=== PATIENT | male | born 1955 | race Hispanic/Latino ===

== ENCOUNTER 2020-12-21 11:43 | Outpatient (CLI) | payer MEDICARE, BC ==
[2020-12-22 01:56] LABS: SARS-CoV-2 PCR by NAA Not Detected (NotDetected)
== END 2020-12-21 11:44 | disposition home or self-care (01) ==
LOC: CSHLAB 11:43
PROVIDERS: ATTEND Internal Medicine Gastroenterology
DX: Z01.812 Encounter for preprocedural laboratory examination (principal); Z20.822 Contact with and (suspected) exposure to COVID-19; I85.00 Esophageal varices without bleeding
CPT/HCPCS: U0003; U0005

== ENCOUNTER 2020-12-26 06:25 | Day surgery (SDC) | payer MEDICARE, BC ==
[2020-12-23 13:51] VITALS: BMI 34.3
[2020-12-26] MEDS ORDERED: Lidocaine 1% MPF 2 ML VIAL ONE (06:29)
[2020-12-26] MEDS ORDERED: PROPOFOL 20 ML ONE (07:04)
[2020-12-26] MEDS ORDERED: Glycopyrrolate 0.2 MG/ML 5 ML SYRINGE ONE (07:05)
[2020-12-26] MEDS ORDERED: Lidocaine 1% PF 5 ML VIAL ONE (07:05)
[2020-12-26] MEDS ORDERED: Fentanyl 100 MCG/2 ML VIAL ONE (08:19)
== END 2020-12-26 09:45 | disposition home or self-care (01) ==
LOC: CSHSDC 06:25
PROVIDERS: ATTEND Internal Medicine Gastroenterology
PROC: 0W3P8ZZ Control Bleeding in Gastrointestinal Tract, Via Natural or Artificial Opening Endoscopic (ICD-10-PCS; principal; 2020-12-26)
DX: I85.01 Esophageal varices with bleeding (principal); K70.31 Alcoholic cirrhosis of liver with ascites; M06.9 Rheumatoid arthritis, unspecified; B18.2 Chronic viral hepatitis C; K76.6 Portal hypertension; K31.89 Other diseases of stomach and duodenum
CPT/HCPCS: 88305; J2704; J3010

== ENCOUNTER 2023-11-13 12:18 | Day surgery (SDC) | payer MEDICARE ==
[2023-11-13] MEDS ORDERED: Lidocaine 1% PF 5 ML VIAL ONE (12:49)
[2023-11-13] MEDS ORDERED: Sodium Bicarbonate 2.5 MEQ/5 ML SDV ONE (12:49)
[2023-11-13] MEDS ORDERED: Albumin 25% 100 ML ONE (13:30)
[2023-11-13 14:39] VITALS: BP 119/71; TEMP 98
== END 2023-11-13 14:10 | disposition home or self-care (01) ==
LOC: CSHULT 12:18
PROVIDERS: ATTEND Internal Medicine Gastroenterology
PROC: 0W9G30Z Drainage of Peritoneal Cavity with Drainage Device, Percutaneous Approach (ICD-10-PCS; principal; 2023-11-13)
DX: K74.60 Unspecified cirrhosis of liver (principal); R18.8 Other ascites; K76.82 Hepatic encephalopathy; M19.90 Unspecified osteoarthritis, unspecified site; K44.9 Diaphragmatic hernia without obstruction or gangrene; B19.20 Unspecified viral hepatitis C without hepatic coma; F17.210 Nicotine dependence, cigarettes, uncomplicated; Z90.49 Acquired absence of other specified parts of digestive tract
CPT/HCPCS: 49083; P9047

== ENCOUNTER 2023-11-27 12:21 | Day surgery (SDC) | payer MEDICARE ==
[2023-11-27] MEDS ORDERED: Albumin 25% 100 ML ONE (13:02)
[2023-11-27] MEDS ORDERED: Sodium Bicarbonate 2.5 MEQ/5 ML SDV ONE (13:03)
[2023-11-27 13:23] VITALS: BP 140/77; TEMP 98.1
== END 2023-11-27 14:45 | disposition home or self-care (01) ==
LOC: CSHULT 12:21
PROVIDERS: ATTEND Internal Medicine Gastroenterology
PROC: 0W9G30Z Drainage of Peritoneal Cavity with Drainage Device, Percutaneous Approach (ICD-10-PCS; principal; 2023-11-27)
DX: K74.60 Unspecified cirrhosis of liver (principal); R18.8 Other ascites; K76.82 Hepatic encephalopathy; M19.90 Unspecified osteoarthritis, unspecified site; K44.9 Diaphragmatic hernia without obstruction or gangrene; B19.20 Unspecified viral hepatitis C without hepatic coma; F17.210 Nicotine dependence, cigarettes, uncomplicated; Z90.49 Acquired absence of other specified parts of digestive tract
CPT/HCPCS: 49083; P9047

== ENCOUNTER 2023-12-11 12:41 | Day surgery (SDC) | payer MEDICARE ==
[2023-12-11] MEDS ORDERED: Lidocaine 1% PF 5 ML VIAL ONE (12:44)
[2023-12-11] MEDS ORDERED: Sodium Bicarbonate 2.5 MEQ/5 ML SDV ONE (12:44)
[2023-12-11] MEDS ORDERED: Albumin 25% 100 ML ONE ×2 (12:59→14:03)
[2023-12-11 13:10] VITALS: BP 130/72; TEMP 98.7
[2023-12-11 13:21] LABS: #Basophils 0.05 10x3/uL (0.0-0.2); #Eosinophils 0.19 10x3/uL (0.0-0.5); #Monocytes 0.99 10x3/uL (0.0-1.1); #Neutrophils 7.31 10x3/uL (1.5-8.4); %Basophils 0.5 % (0.0-2.0); %Lymphocytes 7.9 % (18.0-47.0); %Monocytes 10.6 % (0.0-10.0); %Neutrophils 78.4 % (40.0-75.0); Hematocrit 38.1 % (38.8-50.0); Hemoglobin 13.6 g/dL (13.5-17.5); Mean Corpuscular HGB CONC 35.7 g/dL (32.0-36.0); Mean Corpuscular Hemoglobin 34.4 pg (27.0-33.0); Mean Corpuscular Volume 96.5 fL (81.2-95.1); Platelet Count 140 10x3/uL (150-450); RBC Distribution Width 13.4 % (11.5-14.5); Red Blood Cell (RBC) Count 3.95 10x6/uL (4.32-5.72); White Blood Cell (WBC) Count 9.3 10x3/uL (3.5-10.5)
[2023-12-11 13:24] LABS: INR-International Normal Ratio 1.2; Prothrombin Time 12.5 sec (9.5-12.1)
[2023-12-11 13:57] LABS: Mean Platelet Volume 10.2 fL (7.4-10.4)
== END 2023-12-11 14:35 | disposition home or self-care (01) ==
LOC: CSHULT 12:41
PROVIDERS: ATTEND Internal Medicine Gastroenterology
PROC: 0W9G30Z Drainage of Peritoneal Cavity with Drainage Device, Percutaneous Approach (ICD-10-PCS; principal; 2023-12-11)
DX: K74.60 Unspecified cirrhosis of liver (principal); R18.8 Other ascites; K76.82 Hepatic encephalopathy; M19.90 Unspecified osteoarthritis, unspecified site; K44.9 Diaphragmatic hernia without obstruction or gangrene; K42.9 Umbilical hernia without obstruction or gangrene; B19.20 Unspecified viral hepatitis C without hepatic coma; F17.210 Nicotine dependence, cigarettes, uncomplicated; Z90.49 Acquired absence of other specified parts of digestive tract; Z79.899 Other long term (current) drug therapy
CPT/HCPCS: 49083; 85025; 85610; P9047

== ENCOUNTER → 2023-12-25 | Day surgery (SDC) | payer MEDICARE ==
[~2023-12-25] MED LIST: Albumin 25% 200 ML ONE; Sodium Bicarbonate 2.5 MEQ/5 ML SDV ONE
[2023-12-25 12:58] VITALS: BP 177/77; TEMP 99.5
[2023-12-25 14:31] LABS: Body Fluid Source Ascites Body Fluid
[2023-12-25 14:32] LABS: BF Color Yellow; Clarity Clear (Clear); Tube # EDTA
[2023-12-25 15:01] LABS: BF Segmented Neutrophils 34 %; Cell Count Non Hematic 21 %; Lymphocytes 45 %
== END ==
LOC: CSHULT 12:20
PROVIDERS: ATTEND Internal Medicine Gastroenterology
PROC: 0W9G3ZZ Drainage of Peritoneal Cavity, Percutaneous Approach (ICD-10-PCS; principal; 2023-12-25)
DX: R18.8 Other ascites (principal); K74.60 Unspecified cirrhosis of liver; K76.82 Hepatic encephalopathy; M19.90 Unspecified osteoarthritis, unspecified site; K44.9 Diaphragmatic hernia without obstruction or gangrene; B19.20 Unspecified viral hepatitis C without hepatic coma; F17.210 Nicotine dependence, cigarettes, uncomplicated; Z90.49 Acquired absence of other specified parts of digestive tract; Z87.442 Personal history of urinary calculi; Z79.899 Other long term (current) drug therapy
CPT/HCPCS: 49083; 87070; 87205; 89051; P9047; 87077

== ENCOUNTER → 2024-01-08 | Day surgery (SDC) | payer MEDICARE ==
[~2024-01-08] MED LIST changes: +FLU (Fluad Triv) TS24-25 (65UP)/MF59C/PF 45 MCG/0.5 ML Syringe IM ONE
[2024-01-08 12:59] VITALS: BP 124/74; TEMP 97.8
== END ==
LOC: CSHULT 12:22
PROVIDERS: ATTEND Internal Medicine Gastroenterology
PROC: 0W9G30Z Drainage of Peritoneal Cavity with Drainage Device, Percutaneous Approach (ICD-10-PCS; principal; 2024-01-08)
DX: K74.60 Unspecified cirrhosis of liver (principal); R18.8 Other ascites; K76.82 Hepatic encephalopathy; M19.90 Unspecified osteoarthritis, unspecified site; K44.9 Diaphragmatic hernia without obstruction or gangrene; B19.20 Unspecified viral hepatitis C without hepatic coma; F17.210 Nicotine dependence, cigarettes, uncomplicated; Z90.49 Acquired absence of other specified parts of digestive tract; Z79.899 Other long term (current) drug therapy
CPT/HCPCS: 49083; P9047

== ENCOUNTER 2024-01-22 12:38 | Day surgery (SDC) | payer MEDICARE ==
[2024-01-22] MEDS ORDERED: Albumin 25% 200 ML ONE (13:00)
[2024-01-22 14:00] LABS: #Basophils 0.03 10x3/uL (0.0-0.2); #Eosinophils 0.06 10x3/uL (0.0-0.5); #Monocytes 1.75 10x3/uL (0.0-1.1); #Neutrophils 10.25 10x3/uL (1.5-8.4); %Basophils 0.2 % (0.0-2.0); %Eosinophils 0.5 % (0.0-6.0); %Lymphocytes 4.1 % (18.0-47.0); %Monocytes 13.8 % (0.0-10.0); %Neutrophils 80.6 % (40.0-75.0); Hematocrit 33.5 % (38.8-50.0); Hemoglobin 12.3 g/dL (13.5-17.5); Mean Corpuscular HGB CONC 36.7 g/dL (32.0-36.0); Mean Corpuscular Volume 95.4 fL (81.2-95.1); Mean Platelet Volume 10.5 fL (7.4-10.4); Platelet Count 141 10x3/uL (150-450); RBC Distribution Width 13.2 % (11.5-14.5); Red Blood Cell (RBC) Count 3.51 10x6/uL (4.32-5.72); White Blood Cell (WBC) Count 12.7 10x3/uL (3.5-10.5)
[2024-01-22 14:14] LABS: INR-International Normal Ratio 1.3; PTT 28.6 sec (22.0-33.0); Prothrombin Time 13.7 sec (9.5-12.1)
[2024-01-22] MEDS ORDERED: Sodium Bicarbonate 2.5 MEQ/5 ML SDV ONE ×2 (14:49→15:38)
[2024-01-22] MEDS ORDERED: Lidocaine 1% PF 5 ML VIAL ONE (14:49)
[2024-01-22] MEDS ORDERED: Albumin 25% 100 ML ONE (15:00)
[2024-01-22 15:06] LABS: Platelet Adequacy Comment Appears Decreased; Platelet Clumps SLIGHT
[2024-01-22 15:08] LABS: Macrocytosis SLIGHT = 6-15 cells (100X) (0-5/hpf); Ovalocytes SLIGHT = 2-5 cells (100X) (0-1/hpf)
== END 2024-01-22 16:40 | disposition home or self-care (01) ==
LOC: CSHULT 12:38
PROVIDERS: ATTEND Internal Medicine Gastroenterology
PROC: 0W9G30Z Drainage of Peritoneal Cavity with Drainage Device, Percutaneous Approach (ICD-10-PCS; principal; 2024-01-22)
DX: K74.60 Unspecified cirrhosis of liver (principal); R18.8 Other ascites; K76.82 Hepatic encephalopathy; M19.90 Unspecified osteoarthritis, unspecified site; B19.20 Unspecified viral hepatitis C without hepatic coma; F17.210 Nicotine dependence, cigarettes, uncomplicated; Z90.49 Acquired absence of other specified parts of digestive tract; Z79.899 Other long term (current) drug therapy
CPT/HCPCS: 49083; 76942; 85025; 85610; 85730; P9047

== ENCOUNTER 2024-02-05 12:15 | Day surgery (SDC) | payer MEDICARE ==
[2024-02-05] MEDS ORDERED: Sodium Bicarbonate 2.5 MEQ/5 ML SDV ONE (13:09)
[2024-02-05 13:19] VITALS: BP 136/84; TEMP 97.8
[2024-02-05] MEDS ORDERED: Albumin 25% 200 ML ONE (13:20)
== END 2024-02-05 14:32 | disposition home or self-care (01) ==
LOC: CSHULT 12:15
PROVIDERS: ATTEND Internal Medicine Gastroenterology
PROC: 0W9G3ZZ Drainage of Peritoneal Cavity, Percutaneous Approach (ICD-10-PCS; principal; 2024-02-05)
DX: K74.60 Unspecified cirrhosis of liver (principal); R18.8 Other ascites; K76.82 Hepatic encephalopathy; K42.9 Umbilical hernia without obstruction or gangrene; B19.20 Unspecified viral hepatitis C without hepatic coma; F17.210 Nicotine dependence, cigarettes, uncomplicated; Z90.49 Acquired absence of other specified parts of digestive tract; Z79.899 Other long term (current) drug therapy
CPT/HCPCS: 49083; P9047

== ENCOUNTER 2024-02-20 12:19 | Day surgery (SDC) | payer MEDICARE ==
[2024-02-20] MEDS ORDERED: Albumin 25% 200 ML ONE (12:28)
[2024-02-20] MEDS ORDERED: Sodium Bicarbonate 2.5 MEQ/5 ML SDV ONE (12:29)
[2024-02-20 13:02] VITALS: BP 138/78; TEMP 98.2
== END 2024-02-20 14:47 | disposition home or self-care (01) ==
LOC: CSHULT 12:19
PROVIDERS: ATTEND Internal Medicine Gastroenterology
PROC: 0W9G30Z Drainage of Peritoneal Cavity with Drainage Device, Percutaneous Approach (ICD-10-PCS; principal; 2024-02-20)
DX: K74.60 Unspecified cirrhosis of liver (principal); R18.8 Other ascites; K76.82 Hepatic encephalopathy; M19.90 Unspecified osteoarthritis, unspecified site; K44.9 Diaphragmatic hernia without obstruction or gangrene; B19.20 Unspecified viral hepatitis C without hepatic coma; F17.210 Nicotine dependence, cigarettes, uncomplicated; Z90.49 Acquired absence of other specified parts of digestive tract
CPT/HCPCS: 49083; P9047

== ENCOUNTER → 2024-03-04 | Day surgery (SDC) | payer MEDICARE ==
[~2024-03-04] MED LIST changes: +Lidocaine 1% PF 5 ML VIAL ONE
[2024-03-04 13:00] VITALS: BP 152/86; TEMP 98.5
[2024-03-04 13:24] LABS: #Basophils 0.04 10x3/uL (0.0-0.2); #Eosinophils 0.19 10x3/uL (0.0-0.5); #Monocytes 0.76 10x3/uL (0.0-1.1); #Neutrophils 6.28 10x3/uL (1.5-8.4); %Basophils 0.5 % (0.0-2.0); %Eosinophils 2.4 % (0.0-6.0); %Lymphocytes 7.1 % (18.0-47.0); %Monocytes 9.7 % (0.0-10.0); %Neutrophils 79.8 % (40.0-75.0); Hematocrit 32.5 % (38.8-50.0); Hemoglobin 11.5 g/dL (13.5-17.5); Mean Corpuscular HGB CONC 35.4 g/dL (32.0-36.0); Mean Corpuscular Hemoglobin 34.3 pg (27.0-33.0); Platelet Count 110 10x3/uL (150-450); Red Blood Cell (RBC) Count 3.35 10x6/uL (4.32-5.72); White Blood Cell (WBC) Count 7.87 10x3/uL (3.5-10.5)
[2024-03-04 13:36] LABS: INR-International Normal Ratio 1.2
== END ==
LOC: CSHULT 12:17
PROVIDERS: ATTEND Internal Medicine Gastroenterology
PROC: 0W9G3ZZ Drainage of Peritoneal Cavity, Percutaneous Approach (ICD-10-PCS; principal; 2024-03-04)
DX: K74.60 Unspecified cirrhosis of liver (principal); R18.8 Other ascites; K76.82 Hepatic encephalopathy; K44.9 Diaphragmatic hernia without obstruction or gangrene; M19.90 Unspecified osteoarthritis, unspecified site; B19.20 Unspecified viral hepatitis C without hepatic coma; F17.210 Nicotine dependence, cigarettes, uncomplicated; Z90.49 Acquired absence of other specified parts of digestive tract; Z79.899 Other long term (current) drug therapy
CPT/HCPCS: 49083; 85025; 85610; P9047

== ENCOUNTER 2024-03-18 12:14 | Day surgery (SDC) | payer MEDICARE ==
[2024-03-18 12:39] VITALS: BP 123/78; TEMP 98.3
[2024-03-18] MEDS ORDERED: Albumin 25% 200 ML ONE (13:14)
[2024-03-18] MEDS ORDERED: Sodium Bicarbonate 2.5 MEQ/5 ML SDV ONE (13:21)
== END 2024-03-18 14:40 | disposition home or self-care (01) ==
LOC: CSHULT 12:14
PROVIDERS: ATTEND Internal Medicine Gastroenterology
PROC: 0W9G30Z Drainage of Peritoneal Cavity with Drainage Device, Percutaneous Approach (ICD-10-PCS; principal; 2024-03-18)
DX: K74.60 Unspecified cirrhosis of liver (principal); R18.8 Other ascites; K76.82 Hepatic encephalopathy; M19.90 Unspecified osteoarthritis, unspecified site; K42.9 Umbilical hernia without obstruction or gangrene; K44.9 Diaphragmatic hernia without obstruction or gangrene; B19.20 Unspecified viral hepatitis C without hepatic coma; F17.210 Nicotine dependence, cigarettes, uncomplicated; Z90.49 Acquired absence of other specified parts of digestive tract; Z79.899 Other long term (current) drug therapy
CPT/HCPCS: 49083; P9047

== ENCOUNTER → 2024-04-01 | Day surgery (SDC) | payer MEDICARE ==
[~2024-04-01] MED LIST changes: -FLU (Fluad Triv) TS24-25 (65UP)/MF59C/PF 45 MCG/0.5 ML Syringe IM ONE; -Lidocaine 1% PF 5 ML VIAL ONE
[2024-04-01 13:20] VITALS: BP 138/75; TEMP 98.7
[2024-04-01 14:32] LABS: Body Fluid Source Ascites Body Fluid
[2024-04-01 14:33] LABS: BF Color Yellow
[2024-04-01 15:12] LABS: BF Segmented Neutrophils 40 %; Cell Count Non Hematic 24 %; Lymphocytes 36 %
== END ==
LOC: CSHULT 12:12
PROVIDERS: ATTEND Internal Medicine Gastroenterology
PROC: 0W9G3ZZ Drainage of Peritoneal Cavity, Percutaneous Approach (ICD-10-PCS; principal; 2024-04-01)
DX: K74.60 Unspecified cirrhosis of liver (principal); R18.8 Other ascites; K76.82 Hepatic encephalopathy; K42.9 Umbilical hernia without obstruction or gangrene; E87.1 Hypo-osmolality and hyponatremia; B19.20 Unspecified viral hepatitis C without hepatic coma; F17.210 Nicotine dependence, cigarettes, uncomplicated; Z90.49 Acquired absence of other specified parts of digestive tract; Z79.899 Other long term (current) drug therapy
CPT/HCPCS: 49083; 87070; 89051; P9047